=== PATIENT | male | born 1970 | race Caucasian/White ===

== ENCOUNTER → 2016-11-28 | Outpatient (CLI) | payer MEDICARE, BC | LOC: LAB 13:06 | DX: Z00.00 Encounter for general adult medical examination without abnormal findings (principal); Z12.5 Encounter for screening for malignant neoplasm of prostate; F41.8 Other specified anxiety disorders; E78.2 Mixed hyperlipidemia; M54.16 Radiculopathy, lumbar region; R10.2 Pelvic and perineal pain ==

== ENCOUNTER → 2016-12-14 | Outpatient (CLI) | payer MEDICARE, BC | LOC: LAB 08:26 | DX: R74.0 Nonspecific elevation of levels of transaminase and lactic acid dehydrogenase [LDH] (principal) ==

== ENCOUNTER → 2017-12-30 | Outpatient (CLI) | payer MEDICARE, BC ==
[2017-12-30 08:44] LABS: ALBUMIN 4.4 g/dL (3.5-5.0); BUN/CREATININE RATIO 17.4 (6.0-26.0); CALCIUM 8.8 mg/dL (8.4-10.2); EOS # 0.2 (0.04-0.40); EOS % 2.9 % (0.0-4.0); HEMATOCRIT 46.8 % (42.0-52.0); HEMOGLOBIN 15.8 g/dL (13.5-18.0); LYMPH# 2.5 (1.50-4.00); MEAN CELL VOLUME 89 fl (78-100); MEAN CORPUSCULAR HEMOGLOBIN 30 pg (27-31); MEAN CORPUSCULAR HGB CONC 34 g/dL (33-37); MEAN PLATELET VOLUME 10.7 fl (7.4-10.4); MONO # 0.8 (0.20-0.80); PLATELET COUNT 207 K/mm3 (130-400); POTASSIUM 4.3 mmol/L (3.6-5.0); RED BLOOD COUNT 5.27 M/mm3 (4.20-5.60); TOTAL PROTEIN 7.3 g/dL (6.3-8.2); WHITE BLOOD COUNT 6.5 K/mm3 (4.8-10.8)
[2017-12-30 08:59] LABS: TOTAL BILIRUBIN 0.6 mg/dL (0.2-1.3)
[2017-12-30 09:43] LABS: ERYTHROCYTE SEDIMENTATION RATE 1 mm/hr (0-15)
== END ==
LOC: LAB 08:12
PROVIDERS: Internal Medicine
DX: Z12.5 Encounter for screening for malignant neoplasm of prostate (principal); R10.2 Pelvic and perineal pain; E78.2 Mixed hyperlipidemia; M54.16 Radiculopathy, lumbar region; F41.8 Other specified anxiety disorders

== ENCOUNTER → 2018-10-24 | Outpatient (CLI) | payer MEDICARE, BC ==
[2018-10-24 08:18] LABS: HEMATOCRIT 44.5 % (42.0-52.0); HEMOGLOBIN 14.7 g/dL (13.5-18.0); MEAN CELL VOLUME 89 fl (78-100); MEAN CORPUSCULAR HEMOGLOBIN 29 pg (27-31); MEAN CORPUSCULAR HGB CONC 33 g/dL (33-37); MEAN PLATELET VOLUME 10.5 fl (7.4-10.4); PLATELET COUNT 222 K/mm3 (130-400); RED BLOOD COUNT 5.03 M/mm3 (4.20-5.60); RED CELL DISTRIBUTION WIDTH 13.2 % (11.5-14.5); WHITE BLOOD COUNT 7.3 K/mm3 (4.8-10.8)
[2018-10-24 09:03] LABS: LYMPHOCYTE 40 % (20-51); MONOCYTE 16 % (3-10); NEUTROPHILS 41 % (42-75)
== END ==
LOC: LAB 08:09
PROVIDERS: Internal Medicine
DX: Z12.5 Encounter for screening for malignant neoplasm of prostate (principal); R10.2 Pelvic and perineal pain; E78.2 Mixed hyperlipidemia; M54.16 Radiculopathy, lumbar region; F41.8 Other specified anxiety disorders

== ENCOUNTER → 2019-01-23 | Outpatient (CLI) | payer MEDICARE, BC ==
[2019-01-23 08:20] LABS: EOS # 0.2 (0.04-0.40); EOS % 2.4 % (0.0-4.0); HEMATOCRIT 44.4 % (42.0-52.0); HEMOGLOBIN 15.1 g/dL (13.5-18.0); LYMPH# 2.7 (1.50-4.00); MEAN CELL VOLUME 86 fl (78-100); MEAN CORPUSCULAR HEMOGLOBIN 29 pg (27-31); MEAN CORPUSCULAR HGB CONC 34 g/dL (33-37); MEAN PLATELET VOLUME 10.7 fl (7.4-10.4); MONO # 0.9 (0.20-0.80); NEU # 3.9 (1.40-6.50); PLATELET COUNT 216 K/mm3 (130-400); RED BLOOD COUNT 5.14 M/mm3 (4.20-5.60); RED CELL DISTRIBUTION WIDTH 13.3 % (11.5-14.5); WHITE BLOOD COUNT 7.8 K/mm3 (4.8-10.8)
[2019-01-23 09:28] LABS: ERYTHROCYTE SEDIMENTATION RATE 4 mm/hr (0-15)
[2019-01-23 09:36] LABS: ALBUMIN 4.3 g/dL (3.5-5.0); POTASSIUM 3.9 mmol/L (3.5-5.1)
[2019-01-23 09:39] LABS: TOTAL PROTEIN 6.7 g/dL (6.4-8.3)
[2019-01-23 09:40] LABS: TOTAL BILIRUBIN 0.4 mg/dL (0.2-1.2)
== END ==
LOC: LAB 07:59
PROVIDERS: Internal Medicine
DX: Z12.5 Encounter for screening for malignant neoplasm of prostate (principal); E78.2 Mixed hyperlipidemia; M54.16 Radiculopathy, lumbar region; R10.2 Pelvic and perineal pain; F41.8 Other specified anxiety disorders

== ENCOUNTER → 2019-04-02 | Outpatient (CLI) | payer MEDICARE, BC ==
[2019-04-02 14:35] LABS: HEMATOCRIT 46.3 % (42.0-52.0); HEMOGLOBIN 15.5 g/dL (13.5-18.0); MEAN CELL VOLUME 89 fl (78-100); MEAN CORPUSCULAR HEMOGLOBIN 30 pg (27-31); MEAN CORPUSCULAR HGB CONC 34 g/dL (33-37); MEAN PLATELET VOLUME 10.9 fl (7.4-10.4); PLATELET COUNT 218 K/mm3 (130-400); RED BLOOD COUNT 5.23 M/mm3 (4.20-5.60); RED CELL DISTRIBUTION WIDTH 13.1 % (11.5-14.5)
[2019-04-02 14:48] LABS: ALBUMIN 4.4 g/dL (3.5-5.0); POTASSIUM 4.1 mmol/L (3.5-5.1)
[2019-04-02 14:49] LABS: CALCIUM 9.1 mg/dL (8.3-10.5)
[2019-04-02 14:52] LABS: TOTAL BILIRUBIN 0.7 mg/dL (0.2-1.2)
[2019-04-02 14:57] LABS: MAGNESIUM 1.85 mg/dL (1.60-2.60)
[2019-04-02 15:24] LABS: PARTIAL THROMBOPLASTIN TIME 24.2 SECONDS (21.0-32.0); PROTHROMBIN TIME 10.3 SECONDS (9.0-12.0)
[2019-04-02 16:20] LABS: URINE APPEARANCE CLEAR; URINE BILIRUBIN NEGATIVE (NEGATIVE); URINE BLOOD NEGATIVE (NEGATIVE); URINE COLOR YELLOW; URINE GLUCOSE NEGATIVE (NEGATIVE); URINE KETONE NEGATIVE (NEGATIVE); URINE LEUKOCYTE ESTERASE NEGATIVE (NEGATIVE); URINE MUCUS PRESENT (NOT PRESENT); URINE NITRATE NEGATIVE (NEGATIVE); URINE PROTEIN(semi-quant) TRACE mg/dL (NEGATIVE); URINE UROBILINOGEN NORMAL (NORMAL)
[2019-04-02 16:31] LABS: LYMPHOCYTE 27 % (20-51); MONOCYTE 9 % (3-10); NEUTROPHILS 63 % (42-75)
== END ==
LOC: AMSURD 14:07
PROVIDERS: Internal Medicine
DX: Z01.818 Encounter for other preprocedural examination (principal); R10.2 Pelvic and perineal pain

== ENCOUNTER → 2020-03-10 | Outpatient (CLI) | payer MEDICARE, BC ==
[2020-03-10 10:01] LABS: HEMATOCRIT 43.2 % (42.0-52.0); HEMOGLOBIN 14.3 g/dL (13.5-18.0); MEAN CELL VOLUME 85 fl (78-100); MEAN CORPUSCULAR HEMOGLOBIN 28 pg (27-31); MEAN CORPUSCULAR HGB CONC 33 g/dL (33-37); MEAN PLATELET VOLUME 10.3 fl (7.4-10.4); PLATELET COUNT 247 K/mm3 (130-400); RED BLOOD COUNT 5.09 M/mm3 (4.20-5.60); RED CELL DISTRIBUTION WIDTH 13.8 % (11.5-14.5); WHITE BLOOD COUNT 7.2 K/mm3 (4.8-10.8)
[2020-03-10 10:11] LABS: ALBUMIN 4.1 g/dL (3.5-5.0)
[2020-03-10 10:12] LABS: CALCIUM 8.8 mg/dL (8.3-10.5)
[2020-03-10 10:13] LABS: TOTAL PROTEIN 6.5 g/dL (6.4-8.3)
[2020-03-10 10:15] LABS: TOTAL BILIRUBIN 0.3 mg/dL (0.2-1.2)
[2020-03-10 10:55] LABS: LYMPHOCYTE 32 % (20-51); MONOCYTE 16 % (3-10); NEUTROPHILS 45 % (42-75)
[2020-03-10 11:09] LABS: ERYTHROCYTE SEDIMENTATION RATE 4 mm/hr (0-15)
== END ==
LOC: LAB 09:46
PROVIDERS: Internal Medicine
DX: Z00.00 Encounter for general adult medical examination without abnormal findings (principal); Z12.5 Encounter for screening for malignant neoplasm of prostate; E78.2 Mixed hyperlipidemia; R53.83 Other fatigue

== ENCOUNTER → 2020-09-15 | Outpatient (CLI) | payer MEDICARE, BC ==
[2020-09-15 14:31] LABS: POTASSIUM 4.2 mmol/L (3.5-5.1)
[2020-09-15 14:32] LABS: CALCIUM 9.1 mg/dL (8.3-10.5)
== END ==
LOC: LAB 14:07
PROVIDERS: Internal Medicine
DX: M54.16 Radiculopathy, lumbar region (principal)

== ENCOUNTER → 2021-03-09 | Outpatient (CLI) | payer MEDICARE, BC ==
[2021-03-09 10:53] LABS: BASO # 0.03 K/mm3 (0.02-0.10); EOS # 0.11 K/mm3 (0.04-0.40); EOS % 1.1 % (0.0-4.0); HEMATOCRIT 45.5 % (42.0-52.0); LYMPH# 1.61 K/mm3 (1.50-4.00); MEAN CELL VOLUME 89 fl (78-100); MEAN CORPUSCULAR HEMOGLOBIN 29 pg (27-31); MEAN CORPUSCULAR HGB CONC 33 g/dL (33-37); MONO # 1.27 K/mm3 (0.20-0.80); NEU # 6.91 K/mm3 (1.40-6.50); PLATELET COUNT 223 K/mm3 (130-400); RED BLOOD COUNT 5.14 M/mm3 (4.20-5.60); RED CELL DISTRIBUTION WIDTH 13.8 % (11.5-14.5)
[2021-03-09 10:57] LABS: ALBUMIN 3.9 g/dL (3.5-5.0); POTASSIUM 4.2 mmol/L (3.5-5.1)
[2021-03-09 10:58] LABS: CALCIUM 9.2 mg/dL (8.3-10.5)
[2021-03-09 10:59] LABS: TOTAL PROTEIN 6.8 g/dL (6.4-8.3)
[2021-03-09 11:01] LABS: TOTAL BILIRUBIN 0.4 mg/dL (0.2-1.2)
== END ==
LOC: LAB 10:15
PROVIDERS: Internal Medicine
DX: Z00.00 Encounter for general adult medical examination without abnormal findings (principal); Z12.5 Encounter for screening for malignant neoplasm of prostate

== ENCOUNTER → 2021-08-18 | Outpatient (CLI) | payer MEDICARE, BC ==
[2021-08-18 09:19] LABS: ALBUMIN 4.1 g/dL (3.5-5.0); BASO # 0.02 K/mm3 (0.02-0.10); EOS # 0.07 K/mm3 (0.04-0.40); EOS % 0.6 % (0.0-4.0); HEMATOCRIT 45.9 % (42.0-52.0); LYMPH# 1.62 K/mm3 (1.50-4.00); MEAN CELL VOLUME 89 fl (78-100); MEAN CORPUSCULAR HEMOGLOBIN 29 pg (27-31); MEAN CORPUSCULAR HGB CONC 33 g/dL (33-37); MEAN PLATELET VOLUME 10.3 fl (7.4-10.4); MONO # 1.43 K/mm3 (0.20-0.80); NEU # 8.18 K/mm3 (1.40-6.50); PLATELET COUNT 235 K/mm3 (130-400); POTASSIUM 4.2 mmol/L (3.5-5.1); RED BLOOD COUNT 5.15 M/mm3 (4.20-5.60); RED CELL DISTRIBUTION WIDTH 13.4 % (11.5-14.5); WHITE BLOOD COUNT 11.4 K/mm3 (4.8-10.8)
[2021-08-18 09:21] LABS: CALCIUM 9.2 mg/dL (8.3-10.5)
[2021-08-18 09:22] LABS: TOTAL PROTEIN 6.9 g/dL (6.4-8.3)
[2021-08-18 09:24] LABS: TOTAL BILIRUBIN 0.5 mg/dL (0.2-1.2)
== END ==
LOC: LAB 08:50
PROVIDERS: Internal Medicine
DX: E55.9 Vitamin D deficiency, unspecified (principal); K90.9 Intestinal malabsorption, unspecified; M54.16 Radiculopathy, lumbar region; F41.8 Other specified anxiety disorders; R10.2 Pelvic and perineal pain

== ENCOUNTER → 2022-03-15 | Outpatient (CLI) | payer MEDICARE, BC ==
[2022-03-15 10:01] LABS: BASO # 0.04 K/mm3 (0.02-0.10); EOS # 0.19 K/mm3 (0.04-0.40); EOS % 2.3 % (0.0-4.0); HEMOGLOBIN 14.8 g/dL (13.5-18.0); LYMPH# 3.01 K/mm3 (1.50-4.00); MEAN CELL VOLUME 88 fl (78-100); MEAN CORPUSCULAR HEMOGLOBIN 29 pg (27-31); MEAN CORPUSCULAR HGB CONC 33 g/dL (33-37); MEAN PLATELET VOLUME 10.1 fl (7.4-10.4); MONO # 1.03 K/mm3 (0.20-0.80); NEU # 4.07 K/mm3 (1.40-6.50); PLATELET COUNT 234 K/mm3 (130-400); RED BLOOD COUNT 5.14 M/mm3 (4.20-5.60); RED CELL DISTRIBUTION WIDTH 13.9 % (11.5-14.5); WHITE BLOOD COUNT 8.4 K/mm3 (4.8-10.8)
[2022-03-15 10:09] LABS: ALBUMIN 4.2 g/dL (3.5-5.0); POTASSIUM 4.2 mmol/L (3.5-5.1)
[2022-03-15 10:10] LABS: CALCIUM 8.8 mg/dL (8.3-10.5)
[2022-03-15 10:13] LABS: TOTAL BILIRUBIN 0.4 mg/dL (0.2-1.2)
[2022-03-15 10:16] LABS: URINE APPEARANCE CLEAR; URINE BILIRUBIN NEGATIVE (NEGATIVE); URINE BLOOD NEGATIVE (NEGATIVE); URINE COLOR YELLOW; URINE GLUCOSE NEGATIVE (NEGATIVE); URINE KETONE NEGATIVE (NEGATIVE); URINE LEUKOCYTE ESTERASE NEGATIVE (NEGATIVE); URINE NITRATE NEGATIVE (NEGATIVE); URINE PROTEIN(semi-quant) NEGATIVE (NEGATIVE); URINE UROBILINOGEN NORMAL (NORMAL); URINE WBC 0-1 /hpf (0-3)
[2022-03-15 10:17] LABS: URINE MUCUS PRESENT (NOT PRESENT)
[2022-03-15 10:18] LABS: MAGNESIUM 1.97 mg/dL (1.60-2.60)
== END ==
LOC: LAB 09:39
PROVIDERS: Internal Medicine
DX: Z12.11 Encounter for screening for malignant neoplasm of colon (principal); Z12.5 Encounter for screening for malignant neoplasm of prostate; K90.9 Intestinal malabsorption, unspecified; I10 Essential (primary) hypertension; M54.16 Radiculopathy, lumbar region; F41.8 Other specified anxiety disorders; E55.9 Vitamin D deficiency, unspecified; J45.20 Mild intermittent asthma, uncomplicated; R73.03 Prediabetes

== ENCOUNTER → 2023-03-15 | Outpatient (CLI) | payer MEDICARE, BC ==
[2023-03-15 11:29] LABS: BASO # 0.04 K/mm3 (0.02-0.10); EOS # 0.24 K/mm3 (0.04-0.40); EOS % 3.8 % (0.0-4.0); HEMATOCRIT 47.8 % (42.0-52.0); HEMOGLOBIN 15.9 g/dL (13.5-18.0); LYMPH# 2.13 K/mm3 (1.50-4.00); MEAN CELL VOLUME 90 fl (78-100); MEAN CORPUSCULAR HEMOGLOBIN 30 pg (27-31); MEAN CORPUSCULAR HGB CONC 33 g/dL (33-37); MEAN PLATELET VOLUME 10.5 fl (7.4-10.4); MONO # 0.89 K/mm3 (0.20-0.80); NEU # 3.02 K/mm3 (1.40-6.50); PLATELET COUNT 219 K/mm3 (130-400); RED BLOOD COUNT 5.33 M/mm3 (4.20-5.60); WHITE BLOOD COUNT 6.3 K/mm3 (4.8-10.8)
[2023-03-15 11:34] LABS: ALBUMIN 4.5 g/dL (3.5-5.0); TOTAL BILIRUBIN 0.5 mg/dL (0.2-1.2)
[2023-03-15 11:35] LABS: CALCIUM 9.1 mg/dL (8.3-10.5)
[2023-03-15 11:36] LABS: TOTAL PROTEIN 7.2 g/dL (6.4-8.3)
[2023-03-15 11:43] LABS: MAGNESIUM 1.98 mg/dL (1.60-2.60)
[2023-03-15 12:55] LABS: ERYTHROCYTE SEDIMENTATION RATE 2 mm/hr (0-20)
[2023-03-15 21:15] LABS: TESTOSTERONE 451 ng/dL (221-716)
== END ==
LOC: LAB 10:43
PROVIDERS: Internal Medicine
DX: Z12.5 Encounter for screening for malignant neoplasm of prostate (principal); Z12.11 Encounter for screening for malignant neoplasm of colon; Z11.4 Encounter for screening for human immunodeficiency virus [HIV]; I10 Essential (primary) hypertension; K90.9 Intestinal malabsorption, unspecified; E78.2 Mixed hyperlipidemia; E55.9 Vitamin D deficiency, unspecified; R89.1 Abnormal level of hormones in specimens from other organs, systems and tissues

== ENCOUNTER → 2024-03-09 | Outpatient (CLI) | payer MEDICARE, BC ==
[2024-03-09 09:54] LABS: BASO # 0.03 K/mm3 (0.02-0.10); EOS # 0.39 K/mm3 (0.04-0.40); EOS % 4.7 % (0.0-4.0); HEMOGLOBIN 16.7 g/dL (13.5-18.0); LYMPH# 2.71 K/mm3 (1.50-4.00); MEAN CELL VOLUME 90 fl (78-100); MEAN CORPUSCULAR HEMOGLOBIN 30 pg (27-31); MEAN CORPUSCULAR HGB CONC 33 g/dL (33-37); MONO # 1.31 K/mm3 (0.20-0.80); NEU # 3.92 K/mm3 (1.40-6.50); PLATELET COUNT 246 K/mm3 (130-400); RED BLOOD COUNT 5.64 M/mm3 (4.20-5.60); RED CELL DISTRIBUTION WIDTH 13.4 % (11.5-14.5); WHITE BLOOD COUNT 8.4 K/mm3 (4.8-10.8)
[2024-03-09 10:02] LABS: ALBUMIN 4.9 g/dL (3.5-5.0)
[2024-03-09 10:03] LABS: CALCIUM 10.2 mg/dL (8.3-10.5)
[2024-03-09 10:05] LABS: TOTAL PROTEIN 7.8 g/dL (6.4-8.3)
[2024-03-09 10:07] LABS: TOTAL BILIRUBIN 0.7 mg/dL (0.2-1.2)
[2024-03-09 10:11] LABS: MAGNESIUM 2.23 mg/dL (1.60-2.60)
[2024-03-09 10:22] LABS: URINE APPEARANCE CLEAR (CLEAR); URINE COLOR YELLOW (YELLOW)
[2024-03-09 10:23] LABS: PH-URINE 5.5 (5.0 - 8.0); URINE BILIRUBIN 1+ (NEGATIVE); URINE BLOOD NEGATIVE (NEGATIVE); URINE GLUCOSE NEGATIVE (NEGATIVE); URINE KETONE NEGATIVE (NEGATIVE); URINE LEUKOCYTE ESTERASE NEGATIVE (NEGATIVE); URINE MUCUS PRESENT (NOT PRESENT); URINE NITRATE NEGATIVE (NEGATIVE); URINE PROTEIN(semi-quant) TRACE (NEGATIVE)
== END ==
LOC: LAB 09:25
PROVIDERS: Internal Medicine
DX: Z12.5 Encounter for screening for malignant neoplasm of prostate (principal); Z12.11 Encounter for screening for malignant neoplasm of colon; Z00.00 Encounter for general adult medical examination without abnormal findings